=== PATIENT | female | born 1940 | race Caucasian/White ===

== ENCOUNTER → 2016-11-16 | Outpatient (CLI) | payer MEDICARE ==
--- NOTE | 2016-11-22 13:47 | RADONC ---
RADIATION ONCOLOGY FOLLOWUP NOTE DATE: 11/16/2016 CHART NUMBER: [id number] DIAGNOSIS: Left breast cancer. STAGE: IIB, T2N1M0. ECOG PERFORMANCE STATUS: 1 FOLLOWUP NOTE: Ms. 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 The patient presents today reporting that she has had continuous and worsening right mid humerus pain. Other than that, she has had no pain or discomfort. REVIEW OF SYSTEMS: The patient's review of systems is positive for right humerus pain, but is otherwise noncontributory. She denies nausea, vomiting, fevers, chills, night sweats, diplopia, headaches, anxiety or depression, anorexia, weight loss, visual disturbances, chest pain, urinary or bowel difficulties, bone pain, or neurological problems. PHYSICAL EXAMINATION: The patient is a well-developed, well-nourished white female in no acute distress. HEENT exam is normocephalic, atraumatic. Extraocular movements are intact. There is no palpable cervical, supraclavicular, infraclavicular, axillary, or inguinal lymphadenopathy present. Lungs are clear to auscultation and percussion. Heart has a regular rate and rhythm. Abdomen is benign with no hepatosplenomegaly, masses, or tenderness. Breast examination reveals no masses or discharge bilaterally. Skeletal examination reveals acute tenderness to pressure in the central portion of the right humerus. There is no other tenderness to pressure of percussion of the bony skeleton. Extremities reveal no clubbing, cyanosis, or edema. Neurologic exam is grossly intact, as is the remainder of the physical examination. ASSESSMENT: The patient is clinically doing well at this point. I have ordered a new bone scan to evaluate her for possible metastatic disease just to be safe. In the meantime, I have tentatively set her up for a followup in our office in three months' time. Further recommendations will be made following the result of her bone scan, which is scheduled for November 23. cc: *BETHANY Myers *Tony Patel DO *Earnest Barrios MD *Aftab Mosquera MD
== END ==
LOC: M ONCR 10:47
PROVIDERS: ATTEND Radiology Radiation Oncology
DX: C50.412 Malignant neoplasm of upper-outer quadrant of left female breast (principal)

== ENCOUNTER → 2016-11-23 | Outpatient (CLI) | payer MEDICARE ==
--- NOTE | 2016-11-23 14:51 | REP ---
REASON: Shoulder and wrist pain and history of breast carcinoma. No history of trauma. COMPARISON: None. After the intravenous administration of 22 millicuries of technetium 99m MDP, a total body bone scan was obtained. Mild degenerative type uptake is seen in the shoulders and hands, and slightly in the cervical spine. There is a focal area of increased radionuclide accumulation seen in the right wrist near the carpometacarpal joint. IMPRESSION: 1. Focal increased radionuclide accumulation seen in the right wrist as described above of uncertain etiology. Plain film correlation is recommended. Consider MRI before and after intravenous gadolinium if clinically relevant. 2. Other patterns of degenerative type uptake as described above. Signed by Ori Rodriguez DO 11/23/2016 02:59 P
== END ==
LOC: M RAD 10:02
PROVIDERS: ATTEND Radiology Radiation Oncology
DX: M25.511 Pain in right shoulder (principal); M25.532 Pain in left wrist; Z85.3 Personal history of malignant neoplasm of breast
CPT/HCPCS: 78306; A9503

== ENCOUNTER → 2017-04-19 | Outpatient (CLI) | payer MEDICARE ==
--- NOTE | 2017-04-20 10:05 | RADONC ---
RADIATION ONCOLOGY FOLLOWUP NOTE DATE: 04/19/2017 CHART NUMBER: [id number] DIAGNOSIS: Left breast cancer. STAGE: IIB, T2N1M0. ECOG PERFORMANCE STATUS: 0 FOLLOWUP NOTE: Ms. 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 The patient presents today reporting that she is doing quite well with no complaints at this time related to her radiation therapy or disease. She has no breast or bone pain. REVIEW OF SYSTEMS: The patient's review of systems is noncontributory. She denies nausea, vomiting, fevers, chills, night sweats, diplopia, headaches, anxiety or depression, anorexia, weight loss, visual disturbances, chest pain, urinary or bowel difficulties, bone pain, or neurological problems. PHYSICAL EXAMINATION: The patient is a well-developed, well-nourished white female in no acute distress. HEENT exam is normocephalic, atraumatic. Extraocular movements are intact. There is no palpable cervical, supraclavicular, infraclavicular, axillary, or inguinal lymphadenopathy present. Lungs are clear to auscultation and percussion. Heart has a regular rate and rhythm. Abdomen is benign with no hepatosplenomegaly, masses, or tenderness. Breast examination reveals no masses or discharge bilaterally. Skeletal examination reveals no tenderness to pressure or percussion of the bony skeleton. Extremities reveal no clubbing, cyanosis, or edema. Neurologic exam is grossly intact, as is the remainder of the physical examination. ASSESSMENT: The patient is clinically FOX at this time and will be seen by us again at the end of November when she returns from [place]. She will also continue to be followed by her other physicians in the meantime. cc: MD Earnest Ewing MD Kenneth Fish, MD Jane Sweeney, BETHANY
== END ==
LOC: M ONCR 14:03
PROVIDERS: ATTEND Radiology Radiation Oncology
DX: C50.412 Malignant neoplasm of upper-outer quadrant of left female breast (principal)

== ENCOUNTER → 2017-12-20 | Outpatient (CLI) | payer MEDICARE | LOC: M ONCR 10:55 | DX: C50.412 Malignant neoplasm of upper-outer quadrant of left female breast (principal) | CPT/HCPCS: G0463 ==

== ENCOUNTER → 2020-03-05 | Outpatient (REF) | payer MEDICARE ==
[2020-04-22 19:42] LABS: BLOOD UREA NITROGEN 13 MG/DL (7-18); CREATININE FOR GFR 0.79 MG/DL (0.55-1.30); GLOMERULAR FILTRATION RATE > 60.0 (>32)
== END ==
LOC: M PLALAB 09:30
PROVIDERS: ATTEND Orthopaedic Surgery
DX: M54.5 Low back pain (principal)

== ENCOUNTER → 2022-02-15 | Outpatient (CLI) | payer MEDICARE ==
[~2022-02-15] MED LIST: ANAS1TAB2 PO
[2022-02-15 16:00] LABS: BASO # 0.1 10^3/uL (0.0-0.2); BASO % 0.7 % (0.0-1.0); EOS # 0.1 10^3/uL (0.0-0.5); EOS % 1.4 % (0.0-3.0); HEMATOCRIT 24.2 % (36.0-47.0); LYMPH # 2.3 10^3/uL (1.5-5.0); LYMPH % 31.9 % (24.0-44.0); MEAN CORPUSCULAR HEMOGLOBIN 36.7 pg (27.0-33.0); MEAN CORPUSCULAR HGB CONC 33.1 g/dl (32.0-36.5); MONO # 0.7 10^3/uL (0.0-0.8); MONO % 9.7 % (2.0-8.0); NEUTROPHILS # 4.1 10^3/uL (1.5-8.5); NEUTROPHILS % 55.6 % (36.0-66.0); PLATELET COUNT, AUTOMATED 325 10^3/uL (150-450); RED BLOOD COUNT 2.18 10^6/uL (4.00-5.40); WHITE BLOOD COUNT 7.3 10^3/uL (4.0-10.0)
[2022-02-15 16:49] LABS: ALBUMIN 4.1 GM/DL (3.2-5.2); ALT/SGPT 19 U/L (12-78); BILIRUBIN,TOTAL 0.8 MG/DL (0.2-1.0); BLOOD UREA NITROGEN 14 MG/DL (7-18); CALCIUM LEVEL 9.1 MG/DL (8.8-10.2); CARBON DIOXIDE LEVEL 24 MEQ/L (21-32); CHLORIDE LEVEL 109 MEQ/L (98-107); CREATININE FOR GFR 0.83 MG/DL (0.55-1.30); GLOMERULAR FILTRATION RATE > 60.0 (>32); GLUCOSE, FASTING 108 MG/DL (70-100); POTASSIUM SERUM 4.4 MEQ/L (3.5-5.1); SODIUM LEVEL 141 MEQ/L (136-145); TOTAL PROTEIN 6.5 GM/DL (6.4-8.2)
[2022-02-16 09:23] LABS: IRON (FE) 75 UG/DL (50-170); TOTAL IRON BINDING CAPACITY 242 UG/DL (250-450)
[2022-02-16 20:46] LABS: FOLATE > 24.0 NG/ML (>5.4); VITAMIN B12 LEVEL > 2000 PG/ML (247-911)
== END ==
LOC: M ONCR 14:06
PROVIDERS: ATTEND General Practice
DX: Z08 Encounter for follow-up examination after completed treatment for malignant neoplasm (principal); I89.0 Lymphedema, not elsewhere classified; L59.8 Other specified disorders of the skin and subcutaneous tissue related to radiation; D50.9 Iron deficiency anemia, unspecified; Z85.3 Personal history of malignant neoplasm of breast; Z79.811 Long term (current) use of aromatase inhibitors; Z80.3 Family history of malignant neoplasm of breast; Z92.21 Personal history of antineoplastic chemotherapy; Z92.3 Personal history of irradiation
CPT/HCPCS: 80053; 82607; 82746; 83550; 84466; 85025; 85046; G0463

== ENCOUNTER → 2022-03-06 | Outpatient (REF) | payer MEDICARE ==
[2022-03-06 20:52] LABS: RBC, URINE TNTC /hpf (0-3)
[2022-03-06 20:53] LABS: BACTERIA, URINE NONE SEEN; HYALINE CAST, URINE NONE SEEN /lpf (0-1); SQUAMOUS EPITHELIAL CELL URINE NONE SEEN /hpf (SMALL AMT)
== END ==
LOC: M WUC 20:07
PROVIDERS: ATTEND Physician Assistant
DX: R31.0 Gross hematuria (principal)

== ENCOUNTER → 2022-03-16 | Outpatient (CLI) | payer MEDICARE | LOC: M WHC 08:45 | PROVIDERS: ATTEND General Practice | DX: Z12.31 Encounter for screening mammogram for malignant neoplasm of breast (principal); Z85.3 Personal history of malignant neoplasm of breast ==

== ENCOUNTER → 2022-12-01 | Outpatient (REF) | payer MEDICARE ==
[2022-12-01 15:57] LABS: APPEARANCE, URINE CLEAR (CLEAR); BACTERIA, URINE AUTO NEGATIVE (NEGATIVE); BILIRUBIN, URINE AUTO NEGATIVE (NEGATIVE); BLOOD, URINE BLOOD 1+ (NEGATIVE); COLOR, URINE YELLOW (YELLOW); GLUCOSE, URINE (UA) AUTO NEGATIVE (NEGATIVE); KETONE, URINE AUTO NEGATIVE (NEGATIVE); LEUKOCYTE ESTERASE, URINE AUTO NEGATIVE (NEGATIVE); NITRITE, URINE AUTO NEGATIVE (NEGATIVE); PROTEIN, URINE AUTO NEGATIVE (NEGATIVE); RBC, URINE AUTO 0 /HPF (0-3); SPECIFIC GRAVITY URINE AUTO 1.011 (1.002-1.035); SQUAMOUS EPITHELIAL CELL UR AU 0 /HPF (0-6); UROBILINOGEN, URINE AUTO 0.2 mg/dL (0.0-2.0); WBC, URINE AUTO 1 /HPF (0-3)
== END ==
LOC: M SMT 15:16
PROVIDERS: ATTEND Urology
DX: R31.0 Gross hematuria (principal)

== ENCOUNTER → 2023-02-07 | Outpatient (CLI) | payer MEDICARE ==
[2023-02-07 11:09] LABS: HEMATOCRIT 24.4 % (36.0-47.0); MEAN CORPUSCULAR HEMOGLOBIN 36.4 pg (27.0-33.0); MEAN CORPUSCULAR HGB CONC 32.8 g/dl (32.0-36.5); MEAN CORPUSCULAR VOLUME 110.9 fl (80.0-96.0); PLATELET COUNT, AUTOMATED 303 10^3/uL (150-450); WHITE BLOOD COUNT 5.8 10^3/uL (4.0-10.0)
[2023-02-07 11:26] LABS: INR 0.99; PROTHROMBIN TIME 13.3 SECONDS (12.5-14.5)
[2023-02-07 11:40] LABS: ALBUMIN 3.9 G/DL (3.2-5.2); ALKALINE PHOSPHATASE 34 U/L (46-116); ALT/SGPT 9 U/L (7.0-40); AST/SGOT 8 U/L (<34); BILIRUBIN,TOTAL 1.4 MG/DL (0.3-1.2); BLOOD UREA NITROGEN 13 MG/DL (9-23); CALCIUM LEVEL 8.6 MG/DL (8.3-10.6); CARBON DIOXIDE LEVEL 27 MMOL/L (20-31); CHLORIDE LEVEL 108 MMOL/L (98-107); CREATININE FOR GFR 0.72 MG/DL (0.55-1.30); GLOMERULAR FILTRATION RATE > 60.0 (>32); GLUCOSE, FASTING 99 MG/DL (74-106); POTASSIUM SERUM 4.1 MMOL/L (3.5-5.1); SODIUM LEVEL 141 MMOL/L (136-145); TOTAL PROTEIN 6.1 G/DL (5.7-8.2)
== END ==
LOC: M RAD 10:02
PROVIDERS: ATTEND Urology
DX: R31.0 Gross hematuria (principal)

== ENCOUNTER → 2023-02-15 | Outpatient (CLI) | payer MEDICARE | LOC: M ONCR 10:50 | PROVIDERS: ATTEND General Practice | DX: C50.912 Malignant neoplasm of unspecified site of left female breast (principal); D41.4 Neoplasm of uncertain behavior of bladder; D53.9 Nutritional anemia, unspecified; M25.551 Pain in right hip; M25.561 Pain in right knee; Z71.2 Person consulting for explanation of examination or test findings; Z88.1 Allergy status to other antibiotic agents; Z88.2 Allergy status to sulfonamides; Z92.21 Personal history of antineoplastic chemotherapy; Z92.23 Personal history of estrogen therapy; Z92.3 Personal history of irradiation; Z98.890 Other specified postprocedural states ==

== ENCOUNTER 2023-02-20 06:03 | Day surgery (SDC) | payer MEDICARE ==
[~2023-02-20] VITALS: Ht 167.6 cm; Wt 64.1 kg
[2023-02-20] MEDS ORDERED: LR 1,000 ML IV SCH ×2 (06:40→08:45)
[2023-02-20] MEDS: ceFAZolin SOD 2 GM in IV 1 EA IV ONE (07:37)
[2023-02-20] MEDS ORDERED: ROCURONIUM BROMIDE 50MG/5ML VIAL As Ordered ONE (07:53)
[2023-02-20] MEDS ORDERED: METOCLOPRAMIDE INJ 10MG/2ML VIAL As Ordered ONE (07:53)
[2023-02-20] MEDS ORDERED: SUGAMMADEX SODIUM 500 MG/5 ML VIAL (BRIDION) As Ordered ONE (07:53)
[2023-02-20] MEDS ORDERED: fentaNYL 100 MCG/2 ML INJECTION As Ordered ONE (07:53)
[2023-02-20] MEDS ORDERED: MIDAZOLAM INJ 2MG/2ML VIAL As Ordered ONE (07:53)
[2023-02-20] MEDS ORDERED: LIDOCAINE 2% 100MG/5ML SDV (FOR ANES.) As Ordered ONE (07:53)
[2023-02-20] MEDS ORDERED: ONDANSETRON 4MG 2ML VIAL As Ordered ONE (07:53)
[2023-02-20] MEDS ORDERED: PHENYLephrine 500MCG 5ML (100MCG/ML) SYRINGE As Ordered ONE (07:53)
[2023-02-20] MEDS ORDERED: ACETAMINOPHEN 1000MG 100ML IV BAG As Ordered ONE (07:54)
[2023-02-20] MEDS ORDERED: ePHEDrine SULFATE 25 MG/5 ML(5MG/ML) SYRINGE As Ordered ONE (07:55)
[2023-02-20] MEDS ORDERED: MACR100C43 PO (08:38)
[2023-02-20] MEDS ORDERED: PYRI1TAB5 PO (08:38)
[2023-02-20] MEDS ORDERED: OXYB5TAB10 PO (08:38)
[2023-02-20] MEDS ORDERED: fentaNYL 100 MCG/2 ML INJECTION IV PRN (08:45)
[2023-02-20] MEDS ORDERED: oxyCODONE 5MG TAB PO PRN (08:45)
[2023-02-20] MEDS ORDERED: ONDANSETRON 4MG 2ML VIAL IV PRN (08:45)
[2023-02-20] MEDS ORDERED: HYDROMORPHONE HCL 0.5 MG/ 0.5 ML SYRINGE IV PRN (08:45)
[2023-02-20 10:15] VITALS: BP 132/66; TEMP 98; O2SAT 97
== END 2023-02-20 10:55 | disposition home or self-care (01) ==
LOC: M SDC 06:03
PROVIDERS: ATTEND Urology
DX: C67.9 Malignant neoplasm of bladder, unspecified (principal); N32.89 Other specified disorders of bladder; Z88.1 Allergy status to other antibiotic agents; Z88.2 Allergy status to sulfonamides
CPT/HCPCS: 52240; 52332; 88305; J0131; J0690; J1100; J2250; J2405; J2765; J3010

== ENCOUNTER → 2023-03-06 | Outpatient (REF) | payer MEDICARE ==
[~2023-03-06] MED LIST changes: +MACR100C43 PO; +OXYB5TAB10 PO; +PYRI1TAB5 PO
[2023-03-06 10:37] LABS: APPEARANCE, URINE HAZY (CLEAR); BACTERIA, URINE AUTO NEGATIVE (NEGATIVE); BILIRUBIN, URINE AUTO NEGATIVE (NEGATIVE); BLOOD, URINE BLOOD 3+ (NEGATIVE); COLOR, URINE YELLOW (YELLOW); GLUCOSE, URINE (UA) AUTO NEGATIVE (NEGATIVE); KETONE, URINE AUTO NEGATIVE (NEGATIVE); LEUKOCYTE ESTERASE, URINE AUTO TRACE (NEGATIVE); MUCUS, URINE SMALL (NEGATIVE); NITRITE, URINE AUTO NEGATIVE (NEGATIVE); PROTEIN, URINE AUTO 2+ mg/dL (NEGATIVE); RBC, URINE AUTO TNTC /HPF (0-3); SPECIFIC GRAVITY URINE AUTO 1.012 (1.002-1.035); SQUAMOUS EPITHELIAL CELL UR AU 0 /HPF (0-6); TRIPLE PHOSPHATE CRYSTALS SMALL; UROBILINOGEN, URINE AUTO 0.2 mg/dL (0.0-2.0); WBC, URINE AUTO 14 /HPF (0-3)
== END ==
LOC: M SMT 10:07
PROVIDERS: ATTEND Urology
DX: R30.0 Dysuria (principal)

== ENCOUNTER → 2023-03-17 | Outpatient (CLI) | payer MEDICARE | LOC: M WHC 09:50 | PROVIDERS: ATTEND General Practice | DX: Z08 Encounter for follow-up examination after completed treatment for malignant neoplasm (principal); Z12.31 Encounter for screening mammogram for malignant neoplasm of breast; Z85.3 Personal history of malignant neoplasm of breast ==

== ENCOUNTER → 2023-05-03 | Outpatient (REF) | payer MEDICARE ==
[~2023-05-03] MED LIST changes: -OXYB5TAB10 PO; +OXYB5TAB11 PO
[2023-05-03 16:17] LABS: APPEARANCE, URINE CLEAR (CLEAR); BACTERIA, URINE AUTO 1+ (NEGATIVE); BILIRUBIN, URINE AUTO NEGATIVE (NEGATIVE); BLOOD, URINE BLOOD 1+ (NEGATIVE); COLOR, URINE STRAW (YELLOW); GLUCOSE, URINE (UA) AUTO NEGATIVE (NEGATIVE); KETONE, URINE AUTO NEGATIVE (NEGATIVE); LEUKOCYTE ESTERASE, URINE AUTO 3+ (NEGATIVE); NITRITE, URINE AUTO NEGATIVE (NEGATIVE); PROTEIN, URINE AUTO NEGATIVE (NEGATIVE); RBC, URINE AUTO 0 /HPF (0-3); SPECIFIC GRAVITY URINE AUTO 1.005 (1.002-1.035); SQUAMOUS EPITHELIAL CELL UR AU 0 /HPF (0-6); UROBILINOGEN, URINE AUTO 0.2 mg/dL (0.0-2.0); WBC, URINE AUTO 32 /HPF (0-3)
== END ==
LOC: M SMT 15:39
PROVIDERS: ATTEND Urology
DX: R39.9 Unspecified symptoms and signs involving the genitourinary system (principal)

== ENCOUNTER → 2023-05-30 | Outpatient (REF) | payer MEDICARE ==
[2023-05-30 19:03] LABS: APPEARANCE, URINE CLEAR (CLEAR); BACTERIA, URINE AUTO NEGATIVE (NEGATIVE); BILIRUBIN, URINE AUTO NEGATIVE (NEGATIVE); BLOOD, URINE BLOOD NEGATIVE (NEGATIVE); COLOR, URINE YELLOW (YELLOW); GLUCOSE, URINE (UA) AUTO NEGATIVE (NEGATIVE); KETONE, URINE AUTO NEGATIVE (NEGATIVE); LEUKOCYTE ESTERASE, URINE AUTO NEGATIVE (NEGATIVE); NITRITE, URINE AUTO NEGATIVE (NEGATIVE); PROTEIN, URINE AUTO NEGATIVE (NEGATIVE); RBC, URINE AUTO 0 /HPF (0-3); SPECIFIC GRAVITY URINE AUTO 1.014 (1.002-1.035); SQUAMOUS EPITHELIAL CELL UR AU 0 /HPF (0-6); UROBILINOGEN, URINE AUTO 0.2 mg/dL (0.0-2.0); WBC, URINE AUTO 5 /HPF (0-3)
== END ==
LOC: M SMT 17:36
PROVIDERS: ATTEND Urology
DX: Z85.51 Personal history of malignant neoplasm of bladder (principal)

== ENCOUNTER → 2023-11-07 | Outpatient (REF) | payer MEDICARE ==
[~2023-11-07] MED LIST changes: -OXYB5TAB11 PO; +OXYB5TAB14 PO
[2023-11-07 17:38] LABS: APPEARANCE, URINE CLEAR (CLEAR); BACTERIA, URINE AUTO NEGATIVE (NEGATIVE); BILIRUBIN, URINE AUTO NEGATIVE (NEGATIVE); BLOOD, URINE BLOOD NEGATIVE (NEGATIVE); COLOR, URINE YELLOW (YELLOW); GLUCOSE, URINE (UA) AUTO NEGATIVE (NEGATIVE); KETONE, URINE AUTO NEGATIVE (NEGATIVE); LEUKOCYTE ESTERASE, URINE AUTO 1+ (NEGATIVE); NITRITE, URINE AUTO NEGATIVE (NEGATIVE); PROTEIN, URINE AUTO 1+ mg/dL (NEGATIVE); RBC, URINE AUTO 1 /HPF (0-3); SPECIFIC GRAVITY URINE AUTO 1.021 (1.002-1.035); SQUAMOUS EPITHELIAL CELL UR AU 1 /HPF (0-6); UROBILINOGEN, URINE AUTO 0.2 mg/dL (0.0-2.0); WBC, URINE AUTO 13 /HPF (0-3)
== END ==
LOC: M SMT 17:05
PROVIDERS: ATTEND Urology
DX: Z85.51 Personal history of malignant neoplasm of bladder (principal)

== ENCOUNTER → 2023-11-23 | Outpatient (CLI) | payer MEDICARE | LOC: M ONCR 13:27 | PROVIDERS: ATTEND General Practice | DX: D53.9 Nutritional anemia, unspecified (principal); M25.551 Pain in right hip; W19.XXXA Unspecified fall, initial encounter; R29.6 Repeated falls; Z85.3 Personal history of malignant neoplasm of breast; Z85.59 Personal history of malignant neoplasm of other urinary tract organ; Z71.2 Person consulting for explanation of examination or test findings; Z79.899 Other long term (current) drug therapy; Z88.1 Allergy status to other antibiotic agents; Z88.2 Allergy status to sulfonamides; Z92.21 Personal history of antineoplastic chemotherapy; Z92.3 Personal history of irradiation ==

== ENCOUNTER → 2023-11-23 | Outpatient (CLI) | payer MEDICARE ==
[2023-11-23 15:14] LABS: INR 1.05; PROTHROMBIN TIME 13.4 SECONDS (12.5-14.5)
[2023-11-23 15:30] LABS: BASO # 0.1 10^3/uL (0.0-0.2); BASO % 1.4 % (0.0-1.0); EOS # 0.2 10^3/uL (0.0-0.5); EOS % 2.9 % (0.0-3.0); HEMATOCRIT 21.2 % (36.0-47.0); HEMOGLOBIN 7.1 g/dl (12.0-15.5); LYMPH # 2.1 10^3/uL (1.5-5.0); LYMPH % 25.7 % (24.0-44.0); MEAN CORPUSCULAR HEMOGLOBIN 35.9 pg (27.0-33.0); MEAN CORPUSCULAR HGB CONC 33.5 g/dl (32.0-36.5); MEAN CORPUSCULAR VOLUME 107.1 fl (80.0-96.0); MONO # 0.9 10^3/uL (0.0-0.8); MONO % 11.7 % (2.0-8.0); NEUTROPHILS # 4.6 10^3/uL (1.5-8.5); NEUTROPHILS % 57.8 % (36.0-66.0); PLATELET COUNT, AUTOMATED 342 10^3/uL (150-450); RED BLOOD COUNT 1.98 10^6/uL (4.00-5.40)
[2023-11-23 15:34] LABS: ALBUMIN 3.8 G/DL (3.2-5.2); BILIRUBIN,TOTAL 0.8 MG/DL (0.3-1.2); CALCIUM LEVEL 8.3 MG/DL (8.3-10.6); CREATININE FOR GFR 1.26 MG/DL (0.55-1.30); PERCENT SATURATION 41.2 % (13.2-45.0); POTASSIUM SERUM 4.7 MMOL/L (3.5-5.1); TOTAL PROTEIN 6.1 G/DL (5.7-8.2)
[2023-11-23 15:35] LABS: FERRITIN 491.5 NG/ML (7.3-270.7)
[2023-11-23 15:36] LABS: FOLATE 17.15 NG/ML (>5.4); FREE T4 1.13 NG/DL (0.89-1.76); THYROID STIMULATING HORMONE 1.148 uIU/ML (0.55-4.78)
== END ==
LOC: M RAD 14:14
PROVIDERS: ATTEND General Practice
DX: D46.9 Myelodysplastic syndrome, unspecified (principal); C50.412 Malignant neoplasm of upper-outer quadrant of left female breast; M25.551 Pain in right hip; Z79.899 Other long term (current) drug therapy
CPT/HCPCS: 36415; 73502; 80053; 82607; 82668; 82728; 82746; 83550; 83615; 84439; 84443; 85025; 85046; 85610; G0463

== ENCOUNTER → 2023-12-21 | Outpatient (CLI) | payer MEDICARE ==
[~2023-12-21] MED LIST changes: +LIDOCAINE 1% MDV 20ML VIAL As Ordered ONE
[2023-12-21 08:21] VITALS: TEMP 98.3
[2023-12-21 08:43] LABS: BASO # 0.1 10^3/uL (0.0-0.2); BASO % 0.5 % (0.0-1.0); EOS # 0.3 10^3/uL (0.0-0.5); EOS % 2.5 % (0.0-3.0); HEMATOCRIT 21.5 % (36.0-47.0); LYMPH # 1.8 10^3/uL (1.5-5.0); LYMPH % 17.4 % (24.0-44.0); MEAN CORPUSCULAR HEMOGLOBIN 36.1 pg (27.0-33.0); MEAN CORPUSCULAR HGB CONC 32.1 g/dl (32.0-36.5); MEAN CORPUSCULAR VOLUME 112.6 fl (80.0-96.0); MONO % 9.3 % (2.0-8.0); NEUTROPHILS # 7.3 10^3/uL (1.5-8.5); NEUTROPHILS % 69.6 % (36.0-66.0); PLATELET COUNT, AUTOMATED 335 10^3/uL (150-450); RED BLOOD COUNT 1.91 10^6/uL (4.00-5.40); WHITE BLOOD COUNT 10.5 10^3/uL (4.0-10.0)
[2023-12-21 09:09] LABS: HEMOGLOBIN 6.9 g/dl (12.0-15.5)
[2023-12-21 09:25] VITALS: BP 172/79; O2SAT 98
== END ==
LOC: M IRPRO 08:14
PROVIDERS: ATTEND General Practice
DX: D64.9 Anemia, unspecified (principal); D46.9 Myelodysplastic syndrome, unspecified

== ENCOUNTER → 2023-12-26 | Outpatient (CLI) | payer MEDICARE ==
[~2023-12-26] MED LIST changes: -LIDOCAINE 1% MDV 20ML VIAL As Ordered ONE
== END ==
LOC: M ONCR 13:01
PROVIDERS: ATTEND General Practice
DX: C50.412 Malignant neoplasm of upper-outer quadrant of left female breast (principal); D46.9 Myelodysplastic syndrome, unspecified; D50.9 Iron deficiency anemia, unspecified; Z71.2 Person consulting for explanation of examination or test findings; Z85.59 Personal history of malignant neoplasm of other urinary tract organ; Z88.1 Allergy status to other antibiotic agents; Z88.2 Allergy status to sulfonamides; Z79.899 Other long term (current) drug therapy; Z92.21 Personal history of antineoplastic chemotherapy; Z92.29 Personal history of other drug therapy; Z92.3 Personal history of irradiation
CPT/HCPCS: 86850; 86900; 86901; 86920; G0463

== ENCOUNTER → 2024-01-19 | Outpatient (CLI) | payer MEDICARE ==
[2024-01-19 08:27] LABS: BASO % 0.3 % (0.0-1.0); EOS # 0.2 10^3/uL (0.0-0.5); EOS % 3.1 % (0.0-3.0); HEMATOCRIT 23.2 % (36.0-47.0); HEMOGLOBIN 7.6 g/dl (12.0-15.5); LYMPH # 1.6 10^3/uL (1.5-5.0); MEAN CORPUSCULAR HEMOGLOBIN 35.5 pg (27.0-33.0); MEAN CORPUSCULAR HGB CONC 32.8 g/dl (32.0-36.5); MEAN CORPUSCULAR VOLUME 108.4 fl (80.0-96.0); MONO # 1.2 10^3/uL (0.0-0.8); MONO % 16.8 % (2.0-8.0); NEUTROPHILS % 56.5 % (36.0-66.0); PLATELET COUNT, AUTOMATED 269 10^3/uL (150-450); RED BLOOD COUNT 2.14 10^6/uL (4.00-5.40); WHITE BLOOD COUNT 7.1 10^3/uL (4.0-10.0)
== END ==
LOC: M ONCR 07:51
PROVIDERS: ATTEND General Practice
DX: C94.6 Myelodysplastic disease, not elsewhere classified (principal); M25.551 Pain in right hip; Z79.899 Other long term (current) drug therapy; Z88.1 Allergy status to other antibiotic agents; Z88.2 Allergy status to sulfonamides; Z85.3 Personal history of malignant neoplasm of breast; Z85.59 Personal history of malignant neoplasm of other urinary tract organ; Z92.21 Personal history of antineoplastic chemotherapy; Z92.3 Personal history of irradiation
CPT/HCPCS: 36415; 85025; G0463

== ENCOUNTER → 2024-01-23 | Outpatient (CLI) | payer MEDICARE | LOC: M LAB 10:04 | PROVIDERS: ATTEND General Practice | DX: C50.912 Malignant neoplasm of unspecified site of left female breast (principal) ==

== ENCOUNTER 2024-01-24 08:50 | Outpatient (CLI) | payer MEDICARE ==
[~2024-01-24] VITALS: Ht 165.1 cm; Wt 63.6 kg
[2024-01-24 08:55] VITALS: BP 168/74; O2SAT 96
[2024-01-24] MEDS: diphenhydrAMINE 25MG CAP PO ONE (09:00)
[2024-01-24] MEDS: ACETAMINOPHEN TAB 650MG DOSE (2X325MG) PO ONE (09:00)
[2024-01-24] MEDS ORDERED: NS 250 ML IV ONE (09:30)
[2024-01-24 09:35] VITALS: BP 168/72; TEMP 98.4; O2SAT 99
[2024-01-24 11:16] VITALS: BP 155/69; O2SAT 97
== END 2024-01-24 11:20 ==
LOC: M INFU 08:50
PROVIDERS: ATTEND General Practice
DX: D46.9 Myelodysplastic syndrome, unspecified (principal); Z88.2 Allergy status to sulfonamides
CPT/HCPCS: 36430; 86920; P9016

== ENCOUNTER → 2024-02-16 | Outpatient (CLI) | payer MEDICARE ==
[2024-02-16 11:36] LABS: BASO % 0.5 % (0.0-1.0); EOS # 0.2 10^3/uL (0.0-0.5); HEMATOCRIT 21.1 % (36.0-47.0); LYMPH # 2.3 10^3/uL (1.5-5.0); LYMPH % 30.6 % (24.0-44.0); MEAN CORPUSCULAR HEMOGLOBIN 33.7 pg (27.0-33.0); MEAN CORPUSCULAR HGB CONC 33.2 g/dl (32.0-36.5); MEAN CORPUSCULAR VOLUME 101.4 fl (80.0-96.0); MONO # 0.8 10^3/uL (0.0-0.8); MONO % 10.1 % (2.0-8.0); NEUTROPHILS # 4.2 10^3/uL (1.5-8.5); NEUTROPHILS % 55.4 % (36.0-66.0); PLATELET COUNT, AUTOMATED 289 10^3/uL (150-450); RED BLOOD COUNT 2.08 10^6/uL (4.00-5.40); WHITE BLOOD COUNT 7.6 10^3/uL (4.0-10.0)
== END ==
LOC: M ONCR 10:51
PROVIDERS: ATTEND General Practice
DX: Z08 Encounter for follow-up examination after completed treatment for malignant neoplasm (principal); D46.9 Myelodysplastic syndrome, unspecified; T45.1X5A Adverse effect of antineoplastic and immunosuppressive drugs, initial encounter; X58.XXXA Exposure to other specified factors, initial encounter; Z85.3 Personal history of malignant neoplasm of breast; Z85.51 Personal history of malignant neoplasm of bladder; Z88.1 Allergy status to other antibiotic agents; Z88.2 Allergy status to sulfonamides; Z92.21 Personal history of antineoplastic chemotherapy; Z92.3 Personal history of irradiation

== ENCOUNTER → 2024-03-19 | Outpatient (CLI) | payer MEDICARE ==
[2024-03-19 11:02] LABS: BASO % 0.5 % (0.0-1.0); EOS # 0.2 10^3/uL (0.0-0.5); EOS % 2.5 % (0.0-3.0); HEMATOCRIT 21.1 % (36.0-47.0); LYMPH # 1.7 10^3/uL (1.5-5.0); LYMPH % 20.1 % (24.0-44.0); MEAN CORPUSCULAR HEMOGLOBIN 35.4 pg (27.0-33.0); MEAN CORPUSCULAR HGB CONC 33.2 g/dl (32.0-36.5); MEAN CORPUSCULAR VOLUME 106.6 fl (80.0-96.0); MONO # 0.8 10^3/uL (0.0-0.8); MONO % 9.6 % (2.0-8.0); NEUTROPHILS # 5.7 10^3/uL (1.5-8.5); NEUTROPHILS % 66.7 % (36.0-66.0); PLATELET COUNT, AUTOMATED 327 10^3/uL (150-450); RED BLOOD COUNT 1.98 10^6/uL (4.00-5.40); WHITE BLOOD COUNT 8.5 10^3/uL (4.0-10.0)
== END ==
LOC: M ONCR 10:31
PROVIDERS: ATTEND General Practice
DX: C94.6 Myelodysplastic disease, not elsewhere classified (principal); Z85.3 Personal history of malignant neoplasm of breast; Z85.51 Personal history of malignant neoplasm of bladder; Z88.1 Allergy status to other antibiotic agents; Z88.2 Allergy status to sulfonamides; Z79.899 Other long term (current) drug therapy; Z92.21 Personal history of antineoplastic chemotherapy; Z92.29 Personal history of other drug therapy; Z92.3 Personal history of irradiation
CPT/HCPCS: 36415; 85025; G0463

== ENCOUNTER → 2024-03-20 | Outpatient (CLI) | payer MEDICARE | LOC: M WHC 10:47 | PROVIDERS: ATTEND General Practice | DX: Z12.31 Encounter for screening mammogram for malignant neoplasm of breast (principal); Z85.3 Personal history of malignant neoplasm of breast ==

== ENCOUNTER → 2024-04-23 | Outpatient (REF) | payer MEDICARE ==
[2024-04-24 11:16] LABS: APPEARANCE, URINE MANUAL CLEAR (CLEAR); COLOR, URINE MANUAL YELLOW (YELLOW); SPECIFIC GRAVITY,URINE MANUAL 1.015 (1.002-1.035)
[2024-04-24 11:17] LABS: BILIRUBIN, URINE MANUAL NEGATIVE (NEGATIVE); BLOOD URINE MANUAL NEGATIVE (NEGATIVE); GLUCOSE, URINE (UA) MANUAL NEGATIVE (NEGATIVE); KETONE, URINE MANUAL NEGATIVE (NEGATIVE); NITRITE, URINE MANUAL NEGATIVE (NEGATIVE); UROBILINOGEN, URINE MANUAL NORMAL (NORMAL)
[2024-04-24 11:18] LABS: LEUKOCYTE ESTERASE, URINE MAN TRACE (NEGATIVE); PROTEIN, URINE MANUAL TRACE mg/dL (NEGATIVE)
[2024-04-24 11:47] LABS: RBC, URINE 0-1 /hpf (0-3); SQUAMOUS EPITHELIAL CELL URINE MOD AMOUNT /hpf (SMALL AMT)
[2024-04-24 11:48] LABS: BACTERIA, URINE SMALL AMOUNT; HYALINE CAST, URINE NONE SEEN /lpf (0-1)
== END ==
LOC: M SMT 10:00
PROVIDERS: ATTEND Urology
DX: Z85.51 Personal history of malignant neoplasm of bladder (principal)

== ENCOUNTER → 2024-05-01 | Outpatient (CLI) | payer MEDICARE ==
[2024-05-01 10:26] LABS: BASO # 0.1 10^3/uL (0.0-0.2); BASO % 0.7 % (0.0-1.0); EOS # 0.2 10^3/uL (0.0-0.5); EOS % 3.2 % (0.0-3.0); LYMPH # 1.8 10^3/uL (1.5-5.0); LYMPH % 23.5 % (24.0-44.0); MEAN CORPUSCULAR HEMOGLOBIN 37.4 pg (27.0-33.0); MEAN CORPUSCULAR HGB CONC 33.3 g/dl (32.0-36.5); MEAN CORPUSCULAR VOLUME 112.1 fl (80.0-96.0); MONO # 0.8 10^3/uL (0.0-0.8); MONO % 10.3 % (2.0-8.0); NEUTROPHILS # 4.7 10^3/uL (1.5-8.5); NEUTROPHILS % 61.9 % (36.0-66.0); PLATELET COUNT, AUTOMATED 321 10^3/uL (150-450); RED BLOOD COUNT 1.82 10^6/uL (4.00-5.40); WHITE BLOOD COUNT 7.6 10^3/uL (4.0-10.0)
[2024-05-01 10:40] LABS: HEMATOCRIT 20.4 % (36.0-47.0); HEMOGLOBIN 6.8 g/dl (12.0-15.5)
== END ==
LOC: M ONCR 09:59
PROVIDERS: ATTEND General Practice
DX: C94.6 Myelodysplastic disease, not elsewhere classified (principal); Z79.899 Other long term (current) drug therapy; Z85.3 Personal history of malignant neoplasm of breast; Z85.59 Personal history of malignant neoplasm of other urinary tract organ; Z88.1 Allergy status to other antibiotic agents; Z88.2 Allergy status to sulfonamides; Z92.21 Personal history of antineoplastic chemotherapy; Z92.29 Personal history of other drug therapy; Z92.3 Personal history of irradiation

== ENCOUNTER 2024-05-07 09:55 | Outpatient (CLI) | payer MEDICARE ==
[~2024-05-07] VITALS: Ht 165.1 cm; Wt 65.0 kg
[2024-05-07] MEDS ORDERED: diphenhydrAMINE 25MG CAP PO ONE (10:00)
[2024-05-07] MEDS ORDERED: ACETAMINOPHEN 650 MG PO ONE (10:00)
[2024-05-07] MEDS ORDERED: NS 250 ML IV ONE (10:00)
[2024-05-07 10:19] VITALS: BP 126/78; TEMP 97.8; O2SAT 97
[2024-05-07 10:35] VITALS: BP 145/67; TEMP 97.8; O2SAT 98
[2024-05-07 12:20] VITALS: BP 150/67; TEMP 98.1; O2SAT 98
== END 2024-05-07 12:20 ==
LOC: M INFU 09:55
PROVIDERS: ATTEND General Practice
DX: C94.6 Myelodysplastic disease, not elsewhere classified (principal); Z88.2 Allergy status to sulfonamides
CPT/HCPCS: 36430; P9016

== ENCOUNTER → 2024-11-13 | Outpatient (CLI) | payer MEDICARE ==
[~2024-11-13] MED LIST changes: +ACETAMINOPHEN 650 MG PO ONE; +NS (Normal Saline) 0.9% 250 ML IV ONE; +diphenhydrAMINE 25MG CAP PO ONE
[2024-11-13 12:06] LABS: BASO # 0.1 10^3/uL (0.0-0.2); BASO % 0.7 % (0.0-1.0); EOS # 0.2 10^3/uL (0.0-0.5); EOS % 1.7 % (0.0-3.0); LYMPH # 1.7 10^3/uL (1.5-5.0); LYMPH % 16.3 % (24.0-44.0); MEAN CORPUSCULAR HEMOGLOBIN 34.1 pg (27.0-33.0); MEAN CORPUSCULAR HGB CONC 31.8 g/dl (32.0-36.5); MEAN CORPUSCULAR VOLUME 107.3 fl (80.0-96.0); MONO # 0.9 10^3/uL (0.0-0.8); NEUTROPHILS # 7.5 10^3/uL (1.5-8.5); NEUTROPHILS % 71.5 % (36.0-66.0); PLATELET COUNT, AUTOMATED 364 10^3/uL (150-450); RED BLOOD COUNT 2.05 10^6/uL (4.00-5.40); WHITE BLOOD COUNT 10.5 10^3/uL (4.0-10.0)
[2024-11-13 12:42] LABS: ALBUMIN 3.8 G/DL (3.2-5.2); BILIRUBIN,TOTAL 0.9 MG/DL (0.3-1.2); CALCIUM LEVEL 8.2 MG/DL (8.3-10.6); CREATININE FOR GFR 1.26 MG/DL (0.55-1.30); GLOMERULAR FILTRATION RATE 41.6 (>32); POTASSIUM SERUM 4.8 MMOL/L (3.5-5.1); TOTAL PROTEIN 6.3 G/DL (5.7-8.2)
== END ==
LOC: M ONCR 10:46
PROVIDERS: ATTEND General Practice
DX: C94.6 Myelodysplastic disease, not elsewhere classified (principal); C50.412 Malignant neoplasm of upper-outer quadrant of left female breast; Z17.0 Estrogen receptor positive status [ER+]; Z17.21 Progesterone receptor positive status; Z17.32 Human epidermal growth factor receptor 2 negative status; Z92.21 Personal history of antineoplastic chemotherapy; Z92.29 Personal history of other drug therapy; Z92.3 Personal history of irradiation; Z85.59 Personal history of malignant neoplasm of other urinary tract organ; Z63.4 Disappearance and death of family member; Z88.1 Allergy status to other antibiotic agents; Z88.2 Allergy status to sulfonamides; Z79.899 Other long term (current) drug therapy; Z98.890 Other specified postprocedural states
CPT/HCPCS: 36415; 80053; 85025; 86850; 86900; 86901; G0463

== ENCOUNTER 2024-11-14 08:15 | Outpatient (CLI) | payer MEDICARE ==
[~2024-11-14] VITALS: Ht 160 cm; Wt 65.9 kg
[~2024-11-14 08:15] MED LIST changes: -ACETAMINOPHEN 650 MG PO ONE; -NS (Normal Saline) 0.9% 250 ML IV ONE; -diphenhydrAMINE 25MG CAP PO ONE
[2024-11-14] MEDS: ACETAMINOPHEN 650 MG PO ONE (08:55)
[2024-11-14] MEDS: diphenhydrAMINE 25MG CAP PO ONE (08:55)
[2024-11-14] MEDS ORDERED: NS (Normal Saline) 0.9% 250 ML IV ONE (09:00)
[2024-11-14 09:20] VITALS: BP 147/67; TEMP 98.1; O2SAT 100
[2024-11-14 09:35] VITALS: BP 159/67; TEMP 97.7; O2SAT 98
[2024-11-14 10:35] VITALS: BP 152/73; TEMP 98.4; O2SAT 99
[2024-11-14 11:15] VITALS: BP 141/72; TEMP 98.4; O2SAT 99
== END 2024-11-14 11:18 | disposition home or self-care (01) ==
LOC: M INFU 08:15
PROVIDERS: ATTEND General Practice
DX: C94.6 Myelodysplastic disease, not elsewhere classified (principal); Z88.2 Allergy status to sulfonamides
CPT/HCPCS: 36430; 86920; P9016

== ENCOUNTER → 2024-11-19 | Outpatient (REF) | payer MEDICARE ==
[~2024-11-19] MED LIST changes: +ACET-907 PO
[2024-11-19 16:30] LABS: APPEARANCE, URINE CLEAR (CLEAR); BACTERIA, URINE AUTO NEGATIVE (NEGATIVE); BILIRUBIN, URINE AUTO NEGATIVE (NEGATIVE); BLOOD, URINE BLOOD NEGATIVE (NEGATIVE); COLOR, URINE YELLOW (YELLOW); GLUCOSE, URINE (UA) AUTO NEGATIVE (NEGATIVE); KETONE, URINE AUTO NEGATIVE (NEGATIVE); LEUKOCYTE ESTERASE, URINE AUTO NEGATIVE (NEGATIVE); MUCUS, URINE SMALL (NEGATIVE); NITRITE, URINE AUTO NEGATIVE (NEGATIVE); PROTEIN, URINE AUTO NEGATIVE (NEGATIVE); RBC, URINE AUTO 1 /HPF (0-3); SPECIFIC GRAVITY URINE AUTO 1.012 (1.002-1.035); SQUAMOUS EPITHELIAL CELL UR AU 1 /HPF (0-6); UROBILINOGEN, URINE AUTO 0.2 mg/dL (0.0-2.0); WBC, URINE AUTO 1 /HPF (0-3)
== END ==
LOC: M SMT 15:00
PROVIDERS: ATTEND Urology
DX: Z85.51 Personal history of malignant neoplasm of bladder (principal)

== ENCOUNTER 2024-11-28 06:14 | Day surgery (SDC) | payer MEDICARE ==
[~2024-11-28] VITALS: Ht 162.6 cm; Wt 66.1 kg
[~2024-11-28 06:14] MED LIST changes: +PHENYLEPHRINE 10% OPHTH SOL 5ML OD PRN
[2024-11-28] MEDS: OFLOXACIN 0.3 % (OCUFLOX) OPTH SOL 5ML OD ONE (06:40)
[2024-11-28] MEDS: LIDOCAINE 3.5 % 1ML OPHTH TOPICAL GEL OU ONE (06:40)
[2024-11-28] MEDS: TROPICAMIDE 1% OPHTH SOLN 15ML OD SCH (06:51)
[2024-11-28] MEDS: CYCLOPENTOLATE 1% OPHTH SOLN 2ML BTL OD SCH (06:51)
[2024-11-28] MEDS: PHENYLEPHRINE 2.5% OPHTH SOL 2ML OD SCH (06:51)
[2024-11-28] MEDS ORDERED: fentaNYL 100 MCG/2 ML INJECTION As Ordered ONE (06:53)
[2024-11-28] MEDS: LIDOCAINE 1% SDV 5ML VIAL As Ordered ONE (07:55)
[2024-11-28] MEDS: CEFUROXIME 1MG/0.1ML INTRACAMERAL INJ As Ordered ONE (07:56)
[2024-11-28] MEDS: BSS IRRIG/VANCO(10MG)/TOBRA(5MG)/EPINEPH(1:1000-0.5CC)500ML BAG-ORONLY As Ordered ONE (07:56)
[2024-11-28 08:08] VITALS: BP 159/85; TEMP 98.1; O2SAT 96
== END 2024-11-28 08:22 | disposition home or self-care (01) ==
LOC: M SDC 06:14
PROVIDERS: ATTEND Ophthalmology
DX: H25.11 Age-related nuclear cataract, right eye (principal)
CPT/HCPCS: 66984; J0697; J3010; V2632

== ENCOUNTER → 2024-12-11 | Outpatient (CLI) | payer MEDICARE ==
[~2024-12-11] MED LIST changes: -PHENYLEPHRINE 10% OPHTH SOL 5ML OD PRN
[2024-12-11 09:17] LABS: HEMATOCRIT 22.7 % (36.0-47.0); HEMOGLOBIN 7.3 g/dl (12.0-15.5); MEAN CORPUSCULAR HEMOGLOBIN 34.9 pg (27.0-33.0); MEAN CORPUSCULAR HGB CONC 32.2 g/dl (32.0-36.5); MEAN CORPUSCULAR VOLUME 108.6 fl (80.0-96.0); PLATELET COUNT, AUTOMATED 324 10^3/uL (150-450); RED BLOOD COUNT 2.09 10^6/uL (4.00-5.40); WHITE BLOOD COUNT 7.2 10^3/uL (4.0-10.0)
[2024-12-11 09:34] LABS: INR 0.95
[2024-12-11 09:47] LABS: ALBUMIN 3.9 G/DL (3.2-5.2); ALKALINE PHOSPHATASE 48 U/L (35-104); ALT/SGPT < 9 U/L (7.0-40); AST/SGOT 28 U/L (<34); BILIRUBIN,TOTAL 0.8 MG/DL (0.3-1.2); BLOOD UREA NITROGEN 20 MG/DL (9-23); CALCIUM LEVEL 8.4 MG/DL (8.3-10.6); CARBON DIOXIDE LEVEL 24 MMOL/L (20-31); CHLORIDE LEVEL 107 MMOL/L (98-107); GLOMERULAR FILTRATION RATE 44.1 (>32); GLUCOSE, FASTING 117 MG/DL (74-106); POTASSIUM SERUM 4.1 MMOL/L (3.5-5.1); SODIUM LEVEL 141 MMOL/L (136-145); TOTAL PROTEIN 6.3 G/DL (5.7-8.2)
== END ==
LOC: M RAD 08:04
PROVIDERS: ATTEND Urology
DX: Z85.51 Personal history of malignant neoplasm of bladder (principal); R94.31 Abnormal electrocardiogram [ECG] [EKG]; I44.4 Left anterior fascicular block

== ENCOUNTER → 2025-02-03 | Outpatient (CLI) | payer MEDICARE ==
[~2025-02-03] MED LIST changes: +ISOVUE-370 76% 100 ML VIAL ONE
== END ==
LOC: M PLAIMG 12:54
PROVIDERS: ATTEND Physician Assistant
DX: N13.30 Unspecified hydronephrosis (principal); J84.9 Interstitial pulmonary disease, unspecified; J98.11 Atelectasis; R93.2 Abnormal findings on diagnostic imaging of liver and biliary tract; Z90.49 Acquired absence of other specified parts of digestive tract; I70.0 Atherosclerosis of aorta; N28.89 Other specified disorders of kidney and ureter
CPT/HCPCS: 74178; Q9967

== ENCOUNTER → 2025-03-07 | Outpatient (CLI) | payer MEDICARE ==
[~2025-03-07] MED LIST changes: +CEFD1CAP9 PO; -ISOVUE-370 76% 100 ML VIAL ONE; +LACT20EL PO
== END ==
LOC: M ONCR 10:15
PROVIDERS: ATTEND General Practice
DX: C78.7 Secondary malignant neoplasm of liver and intrahepatic bile duct (principal); R93.3 Abnormal findings on diagnostic imaging of other parts of digestive tract; C94.6 Myelodysplastic disease, not elsewhere classified; Z85.3 Personal history of malignant neoplasm of breast; Z85.59 Personal history of malignant neoplasm of other urinary tract organ; Z92.21 Personal history of antineoplastic chemotherapy; Z92.29 Personal history of other drug therapy; Z92.3 Personal history of irradiation
CPT/HCPCS: 36415; 82378; G0463

== ENCOUNTER → 2025-03-14 | Outpatient (REF) | payer MEDICARE ==
[2025-03-14 14:42] LABS: BASO # 0.1 10^3/uL (0.0-0.2); BASO % 0.6 % (0.0-1.0); EOS # 0.2 10^3/uL (0.0-0.5); EOS % 2.1 % (0.0-3.0); LYMPH # 1.7 10^3/uL (1.5-5.0); LYMPH % 18.4 % (24.0-44.0); MONO # 0.9 10^3/uL (0.0-0.8); MONO % 9.3 % (2.0-8.0); NEUTROPHILS # 6.5 10^3/uL (1.5-8.5); NEUTROPHILS % 69.2 % (36.0-66.0); PLATELET COUNT, AUTOMATED 265 10^3/uL (150-450)
[2025-03-14 15:13] LABS: ALT/SGPT 15.0 U/L (7.0-40); AST/SGOT 36.0 U/L (<34); CALCIUM LEVEL 8.8 MG/DL (8.3-10.6); CARBON DIOXIDE LEVEL 24.0 MMOL/L (20-31); CHLORIDE LEVEL 104.0 MMOL/L (98-107); CREATININE FOR GFR 1.23 MG/DL (0.55-1.30); GLOMERULAR FILTRATION RATE 42.8 (>32); POTASSIUM SERUM 5.1 MMOL/L (3.5-5.1); SODIUM LEVEL 139.0 MMOL/L (136-145)
== END ==
LOC: M LABWUC 14:22
PROVIDERS: ATTEND Internal Medicine
DX: C94.6 Myelodysplastic disease, not elsewhere classified (principal)

== ENCOUNTER → 2025-03-17 | Outpatient (CLI) | payer MEDICARE | LOC: M PLARAD 08:12 | PROVIDERS: ATTEND General Practice | DX: C78.7 Secondary malignant neoplasm of liver and intrahepatic bile duct (principal) | CPT/HCPCS: 78815; A9552 ==

== ENCOUNTER → 2025-03-18 | Outpatient (CLI) | payer MEDICARE ==
[2025-03-18 12:38] VITALS: TEMP 98
[2025-03-18] MEDS: NS (Normal Saline) 0.9% 1,000 ML IV SCH (13:46)
[2025-03-18] MEDS: MIDAZOLAM INJ 2 MG/2 ML VIAL IV PRN (13:46)
[2025-03-18] MEDS: SODIUM CHLORIDE 0.9% 1000 ML XX SCH (13:47)
[2025-03-18] MEDS: CIPROFLOXACIN 400 MG in IV 1 EA IV ONE (13:47)
[2025-03-18] MEDS: LIDOCAINE 1% MDV 20 ML VIAL SC SCH (14:35)
[2025-03-18] MEDS: ISOVUE-300 61% 100 ML VIAL IV SCH (14:36)
[2025-03-18 15:05] VITALS: BP 157/68; O2SAT 98
== END ==
LOC: M IRPRO 12:07
PROVIDERS: ATTEND Radiology Diagnostic Radiology
DX: N13.9 Obstructive and reflux uropathy, unspecified (principal)
CPT/HCPCS: 50435; 99152; 99153; C1729; G0463; J0744; J2250; J3010; Q9967

== ENCOUNTER → 2025-03-18 | Outpatient (CLI) | payer MEDICARE | LOC: M ONCR 15:40 | PROVIDERS: ATTEND General Practice | DX: C78.7 Secondary malignant neoplasm of liver and intrahepatic bile duct (principal); C18.7 Malignant neoplasm of sigmoid colon; Z85.3 Personal history of malignant neoplasm of breast; Z98.890 Other specified postprocedural states; Z92.21 Personal history of antineoplastic chemotherapy; Z92.3 Personal history of irradiation; Z88.1 Allergy status to other antibiotic agents; Z88.2 Allergy status to sulfonamides; Z79.899 Other long term (current) drug therapy ==

== ENCOUNTER 2025-03-19 10:49 | Outpatient (RCR) | payer MEDICARE | END 2025-03-23 | LOC: M ONCR 10:49 | PROVIDERS: ATTEND General Practice | DX: Z51.0 Encounter for antineoplastic radiation therapy (principal); C18.7 Malignant neoplasm of sigmoid colon ==

== ENCOUNTER 2025-04-03 08:47 | Outpatient (RCR) | payer MEDICARE | END 2025-04-22 | LOC: M ONCR 08:47 | PROVIDERS: ATTEND General Practice | DX: Z51.0 Encounter for antineoplastic radiation therapy (principal); C18.7 Malignant neoplasm of sigmoid colon ==

== ENCOUNTER → 2025-04-09 | Outpatient (POV) | payer MEDICARE ==
[~2025-04-09] VITALS: Ht 162.6 cm; Wt 62.7 kg
[2025-04-09 09:55] VITALS: BP 140/68; O2SAT 100
== END ==
LOC: M IRPOV 09:20
PROVIDERS: ATTEND Registered Nurse School
DX: C78.7 Secondary malignant neoplasm of liver and intrahepatic bile duct (principal); C18.9 Malignant neoplasm of colon, unspecified; Z80.3 Family history of malignant neoplasm of breast; Z85.3 Personal history of malignant neoplasm of breast; Z85.51 Personal history of malignant neoplasm of bladder; Z88.2 Allergy status to sulfonamides; Z92.3 Personal history of irradiation

== ENCOUNTER 2025-05-02 14:39 | Emergency (ER) | payer MEDICARE ==
[~2025-05-02] VITALS: Ht 162.6 cm; Wt 59.8 kg
[2025-05-02 16:30] VITALS: BP 120/63; TEMP 98.2; O2SAT 97
== END 2025-05-02 16:45 | disposition home or self-care (01) ==
LOC: M ED 14:39 → CANBEDREQ 16:10 → M ED 16:45
DX: D64.9 Anemia, unspecified (principal); C18.7 Malignant neoplasm of sigmoid colon; C50.919 Malignant neoplasm of unspecified site of unspecified female breast; C78.7 Secondary malignant neoplasm of liver and intrahepatic bile duct; Z88.2 Allergy status to sulfonamides
CPT/HCPCS: 36415; 36430; 80053; 85027; 85610; 86850; 86900; 86901; 86920; 93041; 94760; 99284; P9016

== ENCOUNTER 2025-05-02 16:12 | Outpatient (CLI) | payer MEDICARE ==
[2025-05-02] VITALS (11 sets, daily range): BP systolic 115–149; BP diastolic 60–78; TEMP 97–97.5; O2SAT 93–97
== END 2025-05-02 23:13 | disposition home or self-care (01) ==
LOC: M OPCLI4PV 16:12 → M INFU 16:12 → M MSPAV 16:50 → M OPCLI4PV 23:13
PROVIDERS: ATTEND Registered Nurse School
DX: D50.9 Iron deficiency anemia, unspecified (principal); Z88.2 Allergy status to sulfonamides

== ENCOUNTER → 2025-05-02 | Outpatient (CLI) | payer MEDICARE ==
[2025-05-02 12:00] LABS: PLATELET COUNT, AUTOMATED 256 10^3/uL (150-450)
[2025-05-02 12:10] LABS: INR 0.95
[2025-05-02 12:24] LABS: ALT/SGPT 11.0 U/L (7.0-40); AST/SGOT 38.0 U/L (<34); CALCIUM LEVEL 8.2 MG/DL (8.3-10.6); CARBON DIOXIDE LEVEL 25.0 MMOL/L (20-31); CHLORIDE LEVEL 106.0 MMOL/L (98-107); CREATININE FOR GFR 1.37 MG/DL (0.55-1.30); GLOMERULAR FILTRATION RATE 37.6 (>32); POTASSIUM SERUM 4.7 MMOL/L (3.5-5.1); SODIUM LEVEL 140.0 MMOL/L (136-145)
== END ==
LOC: M LAB 11:18
PROVIDERS: ATTEND Radiology Diagnostic Radiology
DX: C18.9 Malignant neoplasm of colon, unspecified (principal); Z79.01 Long term (current) use of anticoagulants

== ENCOUNTER → 2025-05-05 | Outpatient (CLI) | payer MEDICARE ==
[2025-05-05 10:25] LABS: PLATELET COUNT, AUTOMATED 259 10^3/uL (150-450)
== END ==
LOC: M LAB 09:53
PROVIDERS: ATTEND Radiology Diagnostic Radiology
DX: D64.9 Anemia, unspecified (principal)

== ENCOUNTER 2025-05-06 11:56 | Outpatient (CLI) | payer MEDICARE ==
[~2025-05-06 11:56] MED LIST changes: -[UNRECOGNIZED DRUG - CODE] TP; -[UNRECOGNIZED DRUG - CODE] TP
[2025-05-06 12:14] VITALS: TEMP 98.5
[2025-05-06] MEDS: MIDAZOLAM INJ 2 MG/2 ML VIAL IV PRN (13:19)
[2025-05-06] MEDS: NS (Normal Saline) 0.9% 1,000 ML IV SCH ×3 (13:56→17:48)
[2025-05-06] MEDS: ISOVUE-300 61% 100 ML VIAL IV SCH ×2 (13:56→14:22)
[2025-05-06] MEDS: DOXORUBICIN IART ONE (14:04)
[2025-05-06] MEDS: ETHIODIZED OIL 480 MG/ML IART ONE (14:04)
[2025-05-06] MEDS: SODIUM CHLORIDE IART ONE (14:04)
[2025-05-06] MEDS: IOPAMIDOL IART ONE (14:04)
[2025-05-06] MEDS: NITROGLYCERIN IN D5W 25 MG/250 ML (100 MCG/ML) IA SCH (14:23)
[2025-05-06] MEDS: LIDOCAINE 1% MDV 20 ML VIAL SC SCH (14:23)
[2025-05-06] MEDS: ONDANSETRON 4MG 2ML VIAL IV STA (14:24)
[2025-05-06] MEDS ORDERED: ONDANSETRON 4MG 2ML VIAL IV PRN ×2 (14:30→15:20)
[2025-05-06] MEDS ORDERED: PERCOCET 5MG/325MG TAB PO PRN (14:30)
[2025-05-06] MEDS: ACETAMINOPHEN 325 MG TAB PO PRN (15:09)
[2025-05-06] MEDS ORDERED: ACETAMINOPHEN 325 MG TAB PO PRN (15:25)
[2025-05-06 16:55] VITALS: BP 149/92; O2SAT 96
[2025-05-07] MEDS ORDERED: ENOXAPARIN 40 MG/0.4 ML SYRINGE (J1650 PER 10MG) SC SCH (09:00)
== END 2025-05-06 16:25 | disposition other institution (70) ==
LOC: M IRPRO 11:56
PROVIDERS: ATTEND Radiology Diagnostic Radiology
DX: C78.7 Secondary malignant neoplasm of liver and intrahepatic bile duct (principal); M25.559 Pain in unspecified hip; C19 Malignant neoplasm of rectosigmoid junction; Z66 Do not resuscitate; Z88.2 Allergy status to sulfonamides

== ENCOUNTER 2025-05-06 16:09 | Observation (INO) | payer MEDICARE ==
[~2025-05-06] VITALS: Ht 165.1 cm; Wt 62.6 kg
[2025-05-06] MEDS ORDERED: ONDANSETRON 4MG/2ML VIAL IV PRN (16:25)
[2025-05-06 17:25] VITALS: BP 120/50; TEMP 98.8; O2SAT 94
[2025-05-06] MEDS ORDERED: HOME MED LIST COMPLETE! XX SCH (19:00)
[2025-05-06] MEDS: NS (Normal Saline) 0.9% 1,000 ML IV SCH (19:00)
[2025-05-06 20:19] VITALS: BP 120/50; TEMP 98.4; O2SAT 96
[2025-05-06] MEDS: ACETAMINOPHEN 325 MG TAB PO PRN (20:35)
[2025-05-07] VITALS: O2SAT 93
[2025-05-07 04:05] VITALS: BP 120/48; TEMP 98.2; O2SAT 92
[2025-05-07] MEDS: ENOXAPARIN 40 MG/0.4 ML SYRINGE (J1650 PER 10MG) SC SCH (08:15)
[2025-05-07 08:30] VITALS: O2SAT 92
[2025-05-07 09:47] LABS: ALT/SGPT 43.0 U/L (7.0-40); AST/SGOT 313.0 U/L (<34); CALCIUM LEVEL 7.9 MG/DL (8.3-10.6); CARBON DIOXIDE LEVEL 22.0 MMOL/L (20-31); CHLORIDE LEVEL 111.0 MMOL/L (98-107); CREATININE FOR GFR 1.1 MG/DL (0.55-1.30); GLOMERULAR FILTRATION RATE 48.9 (>32); POTASSIUM SERUM 4.7 MMOL/L (3.5-5.1); SODIUM LEVEL 142.0 MMOL/L (136-145)
[2025-05-07 11:49] VITALS: BP 138/61; TEMP 98.2; O2SAT 93
[2025-05-07 13:15] VITALS: O2SAT 95
[2025-05-19] MEDS ORDERED: [UNRECOGNIZED DRUG - CODE] TP (13:17)
[2025-05-19] MEDS ORDERED: [UNRECOGNIZED DRUG - CODE] TP (15:15)
[2025-06-11] MEDS ORDERED: LACT20EL PR (14:50)
== END 2025-05-07 14:07 | disposition home or self-care (01) ==
LOC: M MSPAV 17:02
PROVIDERS: ADMIT Student in an Organized Health Care Education/Training Program; ATTEND Student in an Organized Health Care Education/Training Program
DX: C19 Malignant neoplasm of rectosigmoid junction (principal); C78.7 Secondary malignant neoplasm of liver and intrahepatic bile duct; M25.559 Pain in unspecified hip; Z88.2 Allergy status to sulfonamides; Z66 Do not resuscitate
CPT/HCPCS: 37243; 74300; 75726; 75774; 76937; 99152; 99153; C1887; C1982; G0378; G0463; J2250; J2405; J3010; J9000; Q9967

== ENCOUNTER → 2025-05-06 | Outpatient (CLI) | payer MEDICARE ==
[~2025-05-06] MED LIST changes: +[UNRECOGNIZED DRUG - CODE] TP; +[UNRECOGNIZED DRUG - CODE] TP
== END ==
LOC: M ONCR 09:05
PROVIDERS: ATTEND General Practice
DX: C18.7 Malignant neoplasm of sigmoid colon (principal); C67.9 Malignant neoplasm of bladder, unspecified; C78.7 Secondary malignant neoplasm of liver and intrahepatic bile duct; D46.1 Refractory anemia with ring sideroblasts; C50.912 Malignant neoplasm of unspecified site of left female breast; Z92.21 Personal history of antineoplastic chemotherapy; Z92.3 Personal history of irradiation; Z88.1 Allergy status to other antibiotic agents; Z88.2 Allergy status to sulfonamides

== ENCOUNTER 2025-05-16 15:17 | Emergency (ER) | payer MEDICARE ==
[2025-05-16] VITALS (7 sets, daily range): BP systolic 130–149; BP diastolic 57–68; TEMP 97.9–99; O2SAT 95–97
[~2025-05-16] VITALS: Ht 162.6 cm; Wt 64.8 kg
[~2025-05-16 15:17] MED LIST changes: -[UNRECOGNIZED DRUG - CODE] TP; -[UNRECOGNIZED DRUG - CODE] TP
[2025-05-16 16:34] LABS: BASO # 0.1 10^3/uL (0.0-0.2); BASO % 0.6 % (0.0-1.0); EOS # 0.1 10^3/uL (0.0-0.5); EOS % 1.7 % (0.0-3.0); LYMPH # 1.0 10^3/uL (1.5-5.0); LYMPH % 11.8 % (24.0-44.0); MONO # 0.9 10^3/uL (0.0-0.8); MONO % 11.4 % (2.0-8.0); NEUTROPHILS # 6.0 10^3/uL (1.5-8.5); NEUTROPHILS % 73.2 % (36.0-66.0); PLATELET COUNT, AUTOMATED 412 10^3/uL (150-450)
[2025-05-16 16:46] LABS: INR 1.06
[2025-05-16 17:05] LABS: ALT/SGPT 12.0 U/L (7.0-40); AST/SGOT 20.0 U/L (<34); CALCIUM LEVEL 7.9 MG/DL (8.3-10.6); CARBON DIOXIDE LEVEL 21.0 MMOL/L (20-31); CHLORIDE LEVEL 105.0 MMOL/L (98-107); CREATININE FOR GFR 1.23 MG/DL (0.55-1.30); GLOMERULAR FILTRATION RATE 42.5 (>32); POTASSIUM SERUM 4.6 MMOL/L (3.5-5.1); SODIUM LEVEL 137.0 MMOL/L (136-145)
[2025-05-16] MEDS ORDERED: HOME MED LIST COMPLETE! XX SCH (18:20)
[2025-05-17 00:25] VITALS: BP 144/67; TEMP 98.9; O2SAT 97
[2025-05-17 01:25] VITALS: BP 145/69; TEMP 98.4; O2SAT 97
[2025-05-17 01:47] VITALS: BP_SYST 155; BP_SYST 165; BP_DIAS 78; TEMP 98.5; O2SAT 96
[2025-05-19] MEDS ORDERED: [UNRECOGNIZED DRUG - CODE] TP (13:17)
[2025-05-19] MEDS ORDERED: [UNRECOGNIZED DRUG - CODE] TP (15:15)
== END 2025-05-17 02:00 | disposition home or self-care (01) ==
LOC: M ED 15:17
DX: D64.81 Anemia due to antineoplastic chemotherapy (principal); R91.8 Other nonspecific abnormal finding of lung field; C18.9 Malignant neoplasm of colon, unspecified; Z85.3 Personal history of malignant neoplasm of breast; C67.9 Malignant neoplasm of bladder, unspecified; Z88.2 Allergy status to sulfonamides
CPT/HCPCS: 36415; 36430; 71045; 80048; 80053; 80076; 83690; 85025; 85384; 85610; 85730; 86850; 86900; 86901; 86920; 93005; 99285; P9016

== ENCOUNTER → 2025-05-16 | Outpatient (CLI) | payer MEDICARE ==
[~2025-05-16] MED LIST changes: +[UNRECOGNIZED DRUG - CODE] TP; +[UNRECOGNIZED DRUG - CODE] TP
[2025-05-16 13:06] LABS: BASO # 0.1 10^3/uL (0.0-0.2); BASO % 0.9 % (0.0-1.0); EOS # 0.1 10^3/uL (0.0-0.5); EOS % 1.8 % (0.0-3.0); LYMPH # 1.1 10^3/uL (1.5-5.0); LYMPH % 14.0 % (24.0-44.0); MONO # 1.1 10^3/uL (0.0-0.8); MONO % 14.4 % (2.0-8.0); NEUTROPHILS # 5.3 10^3/uL (1.5-8.5); NEUTROPHILS % 67.5 % (36.0-66.0); PLATELET COUNT, AUTOMATED 426 10^3/uL (150-450)
[2025-05-16 13:29] LABS: ALT/SGPT 13.0 U/L (7.0-40); AST/SGOT 20.0 U/L (<34); CALCIUM LEVEL 7.9 MG/DL (8.3-10.6); CARBON DIOXIDE LEVEL 23.0 MMOL/L (20-31); CHLORIDE LEVEL 104.0 MMOL/L (98-107); CREATININE FOR GFR 1.25 MG/DL (0.55-1.30); GLOMERULAR FILTRATION RATE 41.7 (>32); POTASSIUM SERUM 5.0 MMOL/L (3.5-5.1); SODIUM LEVEL 137.0 MMOL/L (136-145)
== END ==
LOC: M WUC 10:02
PROVIDERS: ATTEND Internal Medicine
DX: C18.9 Malignant neoplasm of colon, unspecified (principal)

== ENCOUNTER 2025-05-19 19:09 | Emergency (ER) | payer MEDICARE ==
[~2025-05-19] VITALS: Ht 162.6 cm; Wt 64.3 kg
[2025-05-19 21:40] LABS: BASO # 0.0 10^3/uL (0.0-0.2); BASO % 0.5 % (0.0-1.0); EOS # 0.2 10^3/uL (0.0-0.5); EOS % 1.8 % (0.0-3.0); LYMPH # 1.1 10^3/uL (1.5-5.0); LYMPH % 13.7 % (24.0-44.0); MONO # 0.8 10^3/uL (0.0-0.8); MONO % 10.2 % (2.0-8.0); NEUTROPHILS # 5.9 10^3/uL (1.5-8.5); NEUTROPHILS % 72.6 % (36.0-66.0); PLATELET COUNT, AUTOMATED 356 10^3/uL (150-450)
[2025-05-19 22:10] LABS: CALCIUM LEVEL 7.8 MG/DL (8.3-10.6); CARBON DIOXIDE LEVEL 24.0 MMOL/L (20-31); CHLORIDE LEVEL 105.0 MMOL/L (98-107); CREATININE FOR GFR 1.14 MG/DL (0.55-1.30); GLOMERULAR FILTRATION RATE 46.6 (>32); POTASSIUM SERUM 4.8 MMOL/L (3.5-5.1); SODIUM LEVEL 137.0 MMOL/L (136-145)
[2025-05-19 22:35] VITALS: BP 140/64; TEMP 97.9; O2SAT 94
== END 2025-05-19 23:35 | disposition left against medical advice (07) ==
LOC: M ED 19:09
DX: Z53.21 Procedure and treatment not carried out due to patient leaving prior to being seen by health care provider (principal)

== ENCOUNTER → 2025-05-19 | Outpatient (CLI) | payer MEDICARE ==
[~2025-05-19] MED LIST changes: +[UNRECOGNIZED DRUG - CODE] TP; +[UNRECOGNIZED DRUG - CODE] TP
[2025-05-19 14:15] LABS: BASO # 0.0 10^3/uL (0.0-0.2); BASO % 0.5 % (0.0-1.0); EOS # 0.1 10^3/uL (0.0-0.5); EOS % 1.8 % (0.0-3.0); LYMPH # 1.0 10^3/uL (1.5-5.0); LYMPH % 13.0 % (24.0-44.0); MONO # 0.9 10^3/uL (0.0-0.8); MONO % 10.9 % (2.0-8.0); NEUTROPHILS # 5.8 10^3/uL (1.5-8.5); NEUTROPHILS % 72.7 % (36.0-66.0); PLATELET COUNT, AUTOMATED 398 10^3/uL (150-450)
== END ==
LOC: M LAB 13:50
PROVIDERS: ATTEND General Practice
DX: C94.6 Myelodysplastic disease, not elsewhere classified (principal)

== ENCOUNTER → 2025-05-19 | Outpatient (POV) | payer MEDICARE ==
[~2025-05-19] VITALS: Ht 162.6 cm; Wt 62.6 kg
[2025-05-19 12:50] VITALS: BP 141/72; O2SAT 98
== END ==
LOC: M IRPOV 12:31
PROVIDERS: ATTEND Registered Nurse School
DX: Z48.812 Encounter for surgical aftercare following surgery on the circulatory system (principal); Z93.6 Other artificial openings of urinary tract status; R10.12 Left upper quadrant pain; N39.0 Urinary tract infection, site not specified; D64.9 Anemia, unspecified; L53.9 Erythematous condition, unspecified; Z88.2 Allergy status to sulfonamides

== ENCOUNTER → 2025-05-20 | Outpatient (CLI) | payer MEDICARE ==
[2025-05-20] MEDS: ACETAMINOPHEN TAB 650MG PO X 1 PO ONE (13:23)
[2025-05-20] MEDS: diphenhydrAMINE (25MG CAP) 25MG PO X 1 PO ONE (13:23)
[2025-05-20 14:09] VITALS: BP 152/73; TEMP 97.8; O2SAT 95
[2025-05-20 14:29] VITALS: BP 149/68; TEMP 97.7; O2SAT 100
[2025-05-20 15:16] VITALS: BP 131/69; TEMP 97.5; O2SAT 98
[2025-05-20 16:05] VITALS: BP 135/67; TEMP 97.8; O2SAT 96
== END ==
LOC: M ONCM 11:48
PROVIDERS: ATTEND General Practice
DX: C94.6 Myelodysplastic disease, not elsewhere classified (principal)
CPT/HCPCS: 36415; 36430; 86850; 86900; 86901; 86920; P9016

== ENCOUNTER → 2025-05-30 | Outpatient (CLI) | payer MEDICARE ==
[2025-05-30 07:22] VITALS: TEMP 98.1
[2025-05-30] MEDS: CIPROFLOXACIN 400 MG in IV 1 EA IV ONE (07:57)
[2025-05-30] MEDS: NS (Normal Saline) 0.9% 1,000 ML IV SCH (07:57)
[2025-05-30] MEDS: MIDAZOLAM INJ 2 MG/2 ML VIAL IV PRN (08:27)
[2025-05-30] MEDS: ISOVUE-300 61% 100 ML VIAL IV SCH (08:55)
[2025-05-30] MEDS: LIDOCAINE 1% MDV 20 ML VIAL SC SCH (08:55)
[2025-05-30] MEDS: SODIUM CHLORIDE 0.9% 1000 ML XX SCH (08:56)
[2025-05-30 09:15] VITALS: BP 144/70; O2SAT 93
== END ==
LOC: M IRPRO 07:19
PROVIDERS: ATTEND Radiology Diagnostic Radiology
DX: N13.9 Obstructive and reflux uropathy, unspecified (principal)
CPT/HCPCS: 50435; 99152; 99153; C1729; C1769; C1887; J0744; J2250; J3010; Q9967

== ENCOUNTER → 2025-06-02 | Outpatient (CLI) | payer MEDICARE ==
[~2025-06-02] MED LIST changes: +ISOVUE-370 76% 100 ML VIAL As Ordered ONE
== END ==
LOC: M RAD 16:34
PROVIDERS: ATTEND General Practice
DX: C78.7 Secondary malignant neoplasm of liver and intrahepatic bile duct (principal); J43.9 Emphysema, unspecified; J84.10 Pulmonary fibrosis, unspecified; I51.7 Cardiomegaly; Z90.49 Acquired absence of other specified parts of digestive tract; N26.1 Atrophy of kidney (terminal); Z96.0 Presence of urogenital implants; C19 Malignant neoplasm of rectosigmoid junction
CPT/HCPCS: 71260; 74177; Q9967

== ENCOUNTER → 2025-06-04 | Outpatient (CLI) | payer MEDICARE ==
[~2025-06-04] MED LIST changes: -ISOVUE-370 76% 100 ML VIAL As Ordered ONE
[2025-06-04 10:25] LABS: BASO # 0.0 10^3/uL (0.0-0.2); BASO % 0.6 % (0.0-1.0); EOS # 0.3 10^3/uL (0.0-0.5); EOS % 3.9 % (0.0-3.0); LYMPH # 1.4 10^3/uL (1.5-5.0); LYMPH % 22.0 % (24.0-44.0); MONO # 0.8 10^3/uL (0.0-0.8); MONO % 11.9 % (2.0-8.0); NEUTROPHILS # 3.9 10^3/uL (1.5-8.5); NEUTROPHILS % 61.1 % (36.0-66.0); PLATELET COUNT, AUTOMATED 248 10^3/uL (150-450)
== END ==
LOC: M ONCR 09:41
PROVIDERS: ATTEND General Practice
DX: C94.6 Myelodysplastic disease, not elsewhere classified (principal); C18.7 Malignant neoplasm of sigmoid colon; C78.7 Secondary malignant neoplasm of liver and intrahepatic bile duct; C67.9 Malignant neoplasm of bladder, unspecified; C50.912 Malignant neoplasm of unspecified site of left female breast; Z88.1 Allergy status to other antibiotic agents; Z88.2 Allergy status to sulfonamides; Z92.21 Personal history of antineoplastic chemotherapy; Z92.3 Personal history of irradiation
CPT/HCPCS: 82378; 85025; G0463

== ENCOUNTER → 2025-06-11 | Outpatient (POV) | payer MEDICARE ==
[~2025-06-11] MED LIST changes: +ACET650T61 PO; +ATIV1TAB10 PO; +COLA100C5 PO; +HYOS125TA PO; +LACT20EL PR; +METH-1164 PO; +MIRA33506 PO; +MORP1SOL5 PO; +ONDA-282 PO
== END ==
LOC: M IRPOV 13:00
PROVIDERS: ATTEND Radiology Diagnostic Radiology
DX: Z48.815 Encounter for surgical aftercare following surgery on the digestive system (principal); C78.7 Secondary malignant neoplasm of liver and intrahepatic bile duct; N13.9 Obstructive and reflux uropathy, unspecified; C18.9 Malignant neoplasm of colon, unspecified; L53.9 Erythematous condition, unspecified; Z79.899 Other long term (current) drug therapy

== ENCOUNTER → 2025-07-04 | Outpatient (CLI) | payer MEDICARE ==
[2025-07-04 13:03] LABS: ALT/SGPT 10.0 U/L (7.0-40); AST/SGOT 31.0 U/L (<34); CALCIUM LEVEL 8.3 MG/DL (8.3-10.6); CARBON DIOXIDE LEVEL 24.0 MMOL/L (20-31); CHLORIDE LEVEL 107.0 MMOL/L (98-107); CREATININE FOR GFR 1.18 MG/DL (0.55-1.30); GLOMERULAR FILTRATION RATE 44.7 (>32); POTASSIUM SERUM 4.7 MMOL/L (3.5-5.1); SODIUM LEVEL 139.0 MMOL/L (136-145)
== END ==
LOC: M ONCR 09:37
PROVIDERS: ATTEND General Practice
DX: C18.7 Malignant neoplasm of sigmoid colon (principal); C78.7 Secondary malignant neoplasm of liver and intrahepatic bile duct; C94.6 Myelodysplastic disease, not elsewhere classified; C50.412 Malignant neoplasm of upper-outer quadrant of left female breast; Z85.50 Personal history of malignant neoplasm of unspecified urinary tract organ; Z92.21 Personal history of antineoplastic chemotherapy; Z92.3 Personal history of irradiation; Z88.1 Allergy status to other antibiotic agents; Z88.2 Allergy status to sulfonamides

== ENCOUNTER → 2025-07-09 | Outpatient (CLI) | payer MEDICARE ==
[~2025-07-09] VITALS: Ht 162.6 cm; Wt 60.1 kg
[~2025-07-09] MED LIST changes: -ACET650T61 PO; -ATIV1TAB10 PO; -HYOS125TA PO; -METH-1164 PO; -MIRA33506 PO; -MORP1SOL5 PO; -ONDA-282 PO
[2025-07-09 10:52] VITALS: BP 118/64; O2SAT 98
== END ==
LOC: M PAL 10:21
PROVIDERS: ATTEND Physician Assistant
DX: Z51.5 Encounter for palliative care (principal); Z66 Do not resuscitate; C18.9 Malignant neoplasm of colon, unspecified; C78.7 Secondary malignant neoplasm of liver and intrahepatic bile duct; D46.9 Myelodysplastic syndrome, unspecified; C67.9 Malignant neoplasm of bladder, unspecified; Z79.891 Long term (current) use of opiate analgesic; Z88.2 Allergy status to sulfonamides
CPT/HCPCS: G0463; G2212